=== PATIENT | female | born 1945 | race Caucasian/White ===

== ENCOUNTER 2016-12-11 13:21 | Emergency (ER) | payer OTHER ==
--- NOTE | ~2016-12-11 | CT71 ---
[facility] A Service of [facility] [place] RADIOLOGY TEXT RESULTS PATIENT: ROBERT CABALLERO LOCATION: [facility] : 47 UNIT #: [id number] AGE: [address]: Santosh Mariee MD SEX: F ORDER DR: [id number] [facility] [address] [place], [place] [address] [id number] MR#: [id number] Acc #: [id number] NAME: ROBERT CABALLERO. : 1945 SEX: F STUDY DATE/TIME: 12/11/2016 14:16 UNIT: [facility] ROOM: STUDY DESCRIPTION: CT Head Wo Contrast Attending Physician: Snatosh Mariee M.D. Ordering Physician: Santosh Mariee M.D. Primary Care Physician: Spencer Vasquez M.D. MEDICAL IMAGING REPORT This report is preliminary unless electronic signature is present EXAM CT head. DATE OF EXAM 12/11/2016 HISTORY Headache, nausea, [address] head performed skull base through vertex without intravenous contrast. This CT exam was performed with one or more of the following radiation dose reduction techniques: automatic exposure control, adjustment of mA and/or kV according to patient size, and iterative reconstruction. FINDINGS Brainstem unremarkable. Cerebellum and cerebral hemispheres show normal devine matter-white matter differentiation. No hemorrhage. No evidence of acute cortical ischemia. Midline structures nondisplaced. No acute basal ganglia abnormality. The ventricles, cisterns and sulci show mild generalized enlargement consistent with mild generalized atrophy. No intra or extraaxial mass effect or abnormal intracranial fluid collection. The intraorbital soft tissues are unremarkable. The visualized paranasal sinuses and mastoid air cells show air fluid level and mucosal thickening in the right sphenoid sinus suggesting acute right sphenoid sinusitis. Mucosal thickening ethmoid air cells. IMPRESSION 1. No acute abnormality seen in brain. If the patient has ongoing neurologic symptoms, consider follow-up imaging. 2. Mucosal thickening in an air fluid level in the right sphenoid sinus suggesting components of acute and chronic right sphenoid sinusitis. [facility] A Service of [facility] [place] RADIOLOGY TEXT RESULTS PATIENT: ROBERT CABALLERO LOCATION: [facility] : [birth year] UNIT #: [id number] AGE: [address]: Santosh Mariee MD SEX: F ORDER DR: Mild mucosal thickening in ethmoid air cells. Dictated by... Spencer Parsons M.D. THIS IS AN ELECTRONICALLY VERIFIED REPORT Spencer Parsons M.D. at 12/12/2016 10:55 PM AALIYAH/meagan TD: 12/11/2016 16:03 JOB #: [id number] MEDICAL IMAGING REPORT Page 1 of 1 COPY
[2016-12-11 13:11] LABS: BASOPHIL% 0.5 % (0-2.5); DIFF IND NO; EOSINOPHIL% 0.1 % (0.0-7.0); LYMPHOCYTE# 1.3 X10e3 (1.0-3.5); LYMPHOCYTE% 16.9 % (17.0-45.0); MEAN CELL VOLUME 85.3 FL (83-96); MEAN CORPUSCULAR HEMOGLOBIN 27.7 PG (28-34); MEAN CORPUSCULAR HGB CONC 32.4 g/dL (30-36); MEAN PLATELET VOLUME 8.2 FL (6.5-11.5); MONOCYTE# 0.4 X10e3 (0-1.0); MONOCYTE% 4.6 % (3.0-12.0); NEUTROPHIL% 77.9 % (40-75); PLATELET COUNT 244 X10e3 (140-420); RED BLOOD COUNT 5.05 X10e (3.90-5.30); RED CELL DISTRIBUTION WIDTH 13.5 % (11.0-15.5); WHITE BLOOD COUNT 7.7 X10e3 (4.0-10.5)
[~2016-12-11 13:21] MED LIST: BLACK COHASH; CALCIUM 500 + D1 TAB; CERTAGEN; CRESTOR PO; FOSAMAX70 MG PO; PRILOSEC PO; STOOL SOFTENER; VESICARE; VITD PO
[2016-12-11 13:39] LABS: CALCIUM SERUM 9.5 mg/dL (8.4-10.2); CREATININE SERUM 0.5 mg/dL (0.6-1.4); GLOM FILT RATE Estimated 98.1 mL/min (>60); POTASSIUM 4.1 mmol/L (3.5-5.1)
== END 2016-12-11 15:15 | disposition home or self-care (01) ==
LOC: CED 13:21
PROVIDERS: Emergency Medicine
DX: R51 Headache (principal); E11.9 Type 2 diabetes mellitus without complications; I10 Essential (primary) hypertension; Z88.2 Allergy status to sulfonamides; Z87.442 Personal history of urinary calculi
CPT/HCPCS: 36415; 70450; 80048; 85025; 85652; 96374; 96375; 99284; J0780; J1100; J1200; J1885